=== PATIENT | female | born 1955 | race Caucasian/White ===

== ENCOUNTER 2017-02-12 13:23 | Outpatient (CLI) | payer BC ==
[2017-02-12 13:42] LABS: BASOPHILS # (AUTO) 0.1 10^3/uL (0.0-0.1); EOSINOPHILS # (AUTO) 0.1 10^3/uL (0.0-0.7); HCT - HEMATOCRIT 42.4 % (37.0-47.0); HGB - HEMOGLOBIN 14.4 g/dL (12.0-16.0); LYMPHOCYTES # (AUTO) 1.7 10^3/uL (1.5-3.5); LYMPHOCYTES % (AUTO) 26.1 %; MEAN CORPUSCULAR HEMOGLOBIN 32.2 pg (27.0-31.0); MEAN CORPUSCULAR HGB CONC 33.9 g/dL (32.0-36.0); MEAN CORPUSCULAR VOLUME 95.2 fL (81.0-99.0); MEAN PLATELET VOLUME 7.7 fL (7.9-10.8); MONOCYTES # (AUTO) 0.3 10^3/uL (0.0-1.0); MONOCYTES % (AUTO) 4.7 %; NEUTROPHILS # (AUTO) 4.3 10^3/uL (1.5-6.6); NEUTROPHILS % (AUTO) 66.2 %; NUCLEATED RED BLOOD CELLS AUTO 0.1 /100WBC; RED BLOOD COUNT 4.45 10^6/uL (4.20-5.40); RED CELL DISTRIBUTION WIDTH 13.1 % (12.0-15.0); UNCORRECTED WHITE BLOOD COUNT 6.5 x10^3/uL; WHITE BLOOD COUNT 6.5 x10^3/uL (4.8-10.8)
[2017-02-12 13:59] LABS: ALBUMIN/GLOBULIN RATIO 1.4 (1.0-2.2); BILIRUBIN,TOTAL 0.6 mg/dL (0.2-1.0); BUN - BLOOD UREA NITROGEN 15 mg/dL (6-20); CALCIUM 9.6 mg/dL (8.5-10.3); CARBON DIOXIDE - CO2 26 mmol/L (21-32); CHLORIDE 104 mmol/L (101-111); CHOL/HDL RATIO 3.2 (<4.4); CHOLESTEROL 255 mg/dL; CREATININE 0.4 mg/dL (0.4-1.0); GFR - MDRD 161 (>89); GLUCOSE 103 mg/dL (70-100); HDL CHOLESTEROL 80 mg/dL; POTASSIUM 3.8 mmol/L (3.5-5.0); SODIUM 140 mmol/L (135-145); TOTAL PROTEIN 7.8 g/dL (6.7-8.2); TRIGLYCERIDES 96 mg/dL; VLDL CHOLESTEROL 19 mg/dL
== END 2017-02-12 13:24 | disposition home or self-care (01) ==
LOC: LAB 13:23
PROVIDERS: ATTEND Physician Assistant Medical
DX: Z00.00 Encounter for general adult medical examination without abnormal findings (principal); Z11.59 Encounter for screening for other viral diseases
CPT/HCPCS: 36415; 80053; 80061; 84443; 85025; 86803

== ENCOUNTER 2017-04-11 08:41 | Day surgery (SDC) | payer BC ==
[2017-04-11] MEDS ORDERED: LACTATED RINGERS 1,000 ML IV ONE ×2 (09:02→10:25)
[2017-04-11] MEDS ORDERED: fentaNYL 100 MCG/2 ML VIAL IVP ONE (09:34)
[2017-04-11] MEDS ORDERED: MIDAZOLAM 2 MG/2 ML VIAL IVP ONE (09:34)
[2017-04-11 10:49] VITALS: BP 104/67
== END 2017-04-11 08:42 | disposition home or self-care (01) ==
LOC: SDS 08:41
PROVIDERS: ATTEND Surgery
PROC: 0DBN8ZX Excision of Sigmoid Colon, Via Natural or Artificial Opening Endoscopic, Diagnostic (ICD-10-PCS; 2017-04-11)
PROC: 0DBH8ZX Excision of Cecum, Via Natural or Artificial Opening Endoscopic, Diagnostic (ICD-10-PCS; principal; 2017-04-11 09:45)
DX: Z12.11 Encounter for screening for malignant neoplasm of colon (principal); K57.30 Diverticulosis of large intestine without perforation or abscess without bleeding; D12.0 Benign neoplasm of cecum; D12.5 Benign neoplasm of sigmoid colon; K64.8 Other hemorrhoids; F17.210 Nicotine dependence, cigarettes, uncomplicated
CPT/HCPCS: 45384; J7120

== ENCOUNTER 2018-07-27 14:33 | Outpatient (CLI) | payer MEDICARE, OTHER ==
--- NOTE | 2018-07-28 12:25 | Mammography Report ---
Reason: SCREENING MAMMO Procedure Date: 07/27/2018 Accession Number: [id number] / [id number] Procedure: ZAHRAA - Screening Mammo w/Gerardo CPT Code: FULL RESULT: EXAM: Screening Mammo w/Gerardo DATE: 07/27/2018 3:24 PM CLINICAL HISTORY: Routine screening. No reported personal or family history of breast cancer. TECHNIQUE: (B) - Bilateral CC and MLO views were obtained. COMPARISON: 09/12/2015 through 09/03/2009 PARENCHYMAL PATTERN: (A) - The breasts demonstrate scattered fibroglandular densities bilaterally. FINDINGS: Bilateral breasts: There is a stable oval, partially obscured/partially circumscribed 13 mm mass in the anterior upper outer right breast. There is an oval circumscribed isodense mass seen in the posterior inferior left breast MLO view only measuring 7 mm unchanged from comparison of 2016. There are no suspicious masses, calcifications, or areas of distortion. IMPRESSION: Benign findings. BI-RADS category 2. RECOMMENDATION: (ANNUAL) - Recommend routine annual screening mammography. BI-RADS CATEGORY: (2) - Benign Findings. STANDARD QUALIFYING STATEMENTS: 1. This examination was not reviewed with the aid of Computer-Aided Detection (CAD). 2. A negative or benign imaging report should not preclude biopsy if clinically suspicious findings are present. 3. Dense breasts may obscure an underlying neoplasm. 4. This examination was reviewed with the aid of 3D breast imaging (tomosynthesis).
== END 2018-07-27 14:34 | disposition home or self-care (01) ==
LOC: DI 14:33
PROVIDERS: ATTEND Family Medicine
DX: Z12.31 Encounter for screening mammogram for malignant neoplasm of breast (principal)
CPT/HCPCS: 77063; 77067

== ENCOUNTER 2022-01-16 07:53 | Outpatient (CLI) | payer MEDICARE, OTHER ==
--- NOTE | 2022-01-16 12:13 | Mammography Report ---
BILATERAL DIGITAL SCREENING MAMMOGRAM 3D/2D: 01/16/2022 CLINICAL: Routine screening. Comparison is made to exams dated: 07/27/2018 mammogram and 09/12/2015 mammogram - [facility]. There are scattered areas of fibroglandular density in both breasts (category b / 25%-50% glandular t issue). There is architectural distortion in the left breast at 2 o'clock middle depth. There also is architectural distortion in the left breast posterior depth superior region seen on the mediolateral oblique view only. No other significant masses, calcifications, or other findings are seen in either breast. IMPRESSION: INCOMPLETE: NEEDS ADDITIONAL IMAGING EVALUATION The architectural distortion in the left breast at 2 o'clock middle depth is indeterminate. Addition al views with possible ultrasound are recommended. The architectural distortion in the left breast posterior depth superior region seen on the mediolate ral oblique view only is indeterminate. Additional views with possible ultrasound are recommended. Based on the Tyrer Cuzick model (a risk assessment model) the patients lifetime risk is 4.8% and her 10 year risk is 2.6%. According to the ACR, ACS, and NCCN guidelines, an annual breast MRI exam shraddha g with mammogram is recommended if the patients lifetime risk is 20% or greater. This exam was interpreted at Station ID: [id number]. NOTE: For mammograms, a report in lay terms will be sent to the patient. Approximately 15% of breast malignancies will not be visualized mammographically. In the management of a palpable breast mass, a negative mammogram must not discourage biopsy of a clinically suspicious lesion. Electronically Signed By: Portia Baker M.D. lk/:01/16/2022 11:28:04 ACR BI-RADS Category 0: Incomplete 3340F PARENCHYMAL PATTERN: (A) - The breast(s) demonstrate(s) scattered fibroglandular densities. BI-RADS CATEGORY: (0) - 0 Mammo and [place] [id number] Immediate follow-up LATERALITY: (B)
== END 2022-01-16 07:54 | disposition home or self-care (01) ==
LOC: DI 07:53
PROVIDERS: ATTEND Internal Medicine
DX: Z12.31 Encounter for screening mammogram for malignant neoplasm of breast (principal)

== ENCOUNTER 2022-05-31 09:32 | Day surgery (SDC) | payer MEDICARE, OTHER ==
[2022-05-31] MEDS ORDERED: CEFAZOLIN 2G/50ML 0.9% NS 2 GM/50 ML BAG IV ONE (09:37)
[2022-05-31] MEDS ORDERED: LACTATED RINGERS 1,000 ML IV ONE (10:08)
[2022-05-31] MEDS ORDERED: PROPOFOL 200 MG/20 ML VIAL IVP ONE (11:22)
[2022-05-31] MEDS ORDERED: MIDAZOLAM 2 MG/2 ML VIAL ONE (11:23)
[2022-05-31] MEDS ORDERED: fentaNYL 100 MCG/2 ML VIAL ONE ×2 (11:23→13:22)
--- NOTE | 2022-05-31 11:35 | ANESTHESIA ---
Pre-Anesthesia VS, & Labs - Diagnosis left breast carcinoma, right breast lesion - Procedure marcy simple mastectomy with marcy sn biopsy Vital Signs: Temp Pulse Resp BP Pulse Ox O2 Flow Rate 36. C L 67 16 141/87 H 98 05/31/22 09:56 05/31/22 09:56 05/31/22 09:56 05/31/22 09:56 05/31/22 09:56 Height: 5 ft 4 in Weight (kg): 55 kg Body Mass Index: 20.8 BMI Classification: Normal - NPO >8 hours - Is Patient ?: No Home Medications and Allergies Allergies/Adverse Reactions: Allergies Allergy/AdvReac Type Severity Reaction Status Date / Time No Known Drug Allergies Allergy Verified 04/22/22 16:20 Anes History & Medical History - Anesthetic History Anesthesia Complications: reports: No previous complications - Medical History Cardiovascular: reports: None Pulmonary: reports: None Gastrointestinal: reports: Colon polyps Urinary: reports: Other Neuro: reports: None Musculoskeletal: reports: None Endocrine/Autoimmune: reports: None Skin: reports: None Smoking Status: Former smoker (quit 10 years ago) Psychosocial: reports: Cannabis (once per week) History of Cancer?: Yes (breast) - Surgical History General: reports: Colonoscopy Eyes Ears Nose Throat (EENT): reports: Cataracts Gynecologic: reports: Dilation and currettage Exam General: Alert, Oriented x3, Cooperative, No acute distress Dental: WNL Mouth Openin Fingerbreadth Neck Mobility: Normal Mallampati classification: II Thyromental Distance: 4-6 cm Mental/Cognitive Status: Alert/Oriented X3, Normal for patient Plan Anesthesia Type: General Consent for Procedure(s) Verified and Reviewed: Yes Code Status: Attempt Resuscitation ASA classification: 2-Mild systemic disease Is this case an emergency?: No
[2022-05-31] MEDS ORDERED: ATROPINE ABBOJECT 1 MG/10 ML SYRINGE IVP PRN (11:36)
[2022-05-31] MEDS ORDERED: HYDROmorphone 0.5 MG/0.5 ML SYRINGE IVP PRN (11:36)
[2022-05-31] MEDS ORDERED: MORPHINE 2 MG/ML CARPUJECT IVP PRN (11:36)
[2022-05-31] MEDS ORDERED: NALOXONE 0.4 MG/ML VIAL IVP PRN (11:36)
[2022-05-31] MEDS ORDERED: ONDANSETRON 4 MG/2 ML VIAL IVP PRN (11:36)
[2022-05-31] MEDS ORDERED: fentaNYL 100 MCG/2 ML VIAL IVP PRN (11:36)
[2022-05-31] MEDS ORDERED: METHYLENE BLUE 0.5% 50 MG/10 ML AMPULE ONE (11:43)
[2022-05-31] MEDS ORDERED: BUPIVACAINE 0.25% PF 30 ML VIAL ONE (11:43)
[2022-05-31] MEDS ORDERED: LACTATED RINGERS 1,000 ML IV SCH (12:00)
[2022-05-31] MEDS ORDERED: SUCCINYLCHOLINE 200 MG/10 ML VIAL ONE (12:49)
[2022-05-31] MEDS ORDERED: DEXAMETHASONE 10 MG/ML VIAL ONE (12:53)
[2022-05-31] MEDS ORDERED: METHYLENE BLUE 0.5% 50 MG/10 ML AMPULE IV ONE (13:02)
[2022-05-31] MEDS ORDERED: ePHEDrine 50 MG/ML VIAL IVP ONE (13:04)
[2022-05-31] MEDS ORDERED: BUPIVACAINE 0.25% PF 30 ML VIAL SUBQ ONE (13:20)
[2022-05-31] MEDS ORDERED: HYDROmorphone 1 MG/ML CARPUJECT ONE (13:52)
[2022-05-31] MEDS ORDERED: ACETAMINOPHEN 1,000 MG/100 ML 1,000 MG/100 ML BAG IV ONE (13:53)
[2022-05-31] MEDS ORDERED: LACTATED RINGERS 200 ML IV ONE (16:01)
--- NOTE | 2022-05-31 16:12 | OPERATIVE REPORT ---
Operative Report - General Planned Procedure: Bilateral simple mastectomy and left axillary sentinel lymph node biopsy Pre-Op Diagnosis: Left biopsy-proven lobular carcinoma of the breast with MRI showing suspici Procedure Performed: Bilateral simple mastectomy with left axillary sentinel lymph node biopsy Post Op Diagnosis: Same - Procedure Note Primary Surgeon: Gilbert Garza MD Anesthesia Provider: Timo Barakat CRNA Anesthesia Technique: General ET tube, Local (60 mL of quarter percent Marcaine (30 mL on each side)) IV Fluids (mL): 2,000 Estimated Blood Loss (mL): 50 Drain/Tube Type: Bj drain (2 19 Fr Bj drains on the left the posterior 1 in the axilla and the anterior one across the chest wall 1 19 Fr Bj drain across the chest wall on the right) Complications: None. - Other Other Information/Narrative: After verbal and written informed consent was obtained detailing the operation, the alternatives the operation including no operation, risks of infection, bleeding requiring transfusion with its risks, nerve injury, and and after I met with the patient confirming the surgery and the site of surgery (signing the site that would have the sentinel lymph node biopsy), the patient was brought to the operative suite and placed supine on the operating table. Great care was taken to avoid pressure points to prevent pressure necrosis or nerve injury. Monitoring devices were applied along with TEDs and pneumatic compression stockings (to prevent DVT). The patient received preoperative antibiotics for surgical prophylaxis. Timo Barakat CRNA sedated and anesthetized the patient for the entire procedure. A "time in" then confirmed that the patient was identified with 3 identifiers (name, date, and medical record number), the history and physical was updated and in the chart, the signed consent confirming the procedure was in the chart, the patient was in the correct position, the aforementioned prophylactic measures were in place or given, we had the correct personnel and equipment to complete the procedure and that anesthesia and the surgical team were given an opportunity to express any concerns. With the agreement of everyone in the room we proceeded with the operation After prepping the left breast in a sterile manner 3 mL aliquots of methylene blue (2 mL methylene blue and 10 mL of normal saline) were injected at the 12:00, 3:00, 6:00, and 9 o'clock position periareolarly. I then massaged the breast for 5 minutes to assist the dye getting into the lymphatics and subsequently into the lymph nodes. The patient was subsequently prepped and draped in the usual sterile manner. With the patient draped my initials were clearly visible. Both the right and the left breast were marked to try and mirror image the incision. I addressed in the left breast first. An elliptical incision was made encompassing the nipple areolar complex and this was taken down subcutaneously. An upper flap was developed using Bovie electrocautery and I traced this up into the axilla proper in order to find the sentinel lymph node. The sentinel lymph node was clearly identified with his blue coloration and it was attached on the lymph node that did not have blue coloration and both were removed using Bovie electrocautery. Hemostasis was also obtained using a 3-0 Vicryl suture ligature. This was sent off separately for pathologic evaluation. A lower flap was also developed in a similar fashion and dissection was carried out down to the pectoralis major muscle. The upper limit of the dissection was the clavicle, the medial limit of the dissection was the sternum, and the inferior aspect of the dissection was the breast crease. The dissection was then started at the sternum and the breast tissue was raised up off of the pectoralis major muscle without removing any muscle. There was no extension of the tumor into the muscle itself. This proceeded in a medial to lateral manner in order to remove the tail of Huntley. The specimen was sent off the operative field and permission was given to send it to pathology. The wound was examined and meticulous hemostasis was noted. 2 separate stab incisions were placed laterally and through these were placed 19 Egyptian Bj drains were then cut to fit. These were secured to the skin using a 3-0 nylon suture in a Samy sandal fashion. The anterior drain was placed across the left chest wall where the posterior drain was placed in the axilla. The subcutaneous tissues were approximated using interrupted simple 2-0 Vicryl sutures. The skin was then approximated using a running subcuticular 4-0 Monocryl. The subcutaneous tissues were injected using 30 mL of quarter percent Marcaine. Both drains were placed to grenade suction. This wound was then draped off from the right side and a new sterile tray of instruments were used for the right sided dissection. Both I and the scrub changed gown and glove's to ensure that there was no cross-contamination. Another timeout was done to ensure that everyone was on the same page. Instructions were given to give additional antibiotics at the appropriate time. With the 3-minute very run in the room we proceeded with a right-sided simple mastectomy. An elliptical incision was made encompassing the nipple areolar complex and this was taken down subcutaneously. An upper flap and lower flap was developed using Bovie electrocautery and dissection was carried out down to the pectoralis major muscle. The upper limit of the dissection was the clavicle, the medial limit of the dissection was the sternum, and the inferior aspect of the dissection was the breast crease. The dissection was then started at the sternum and the breast tissue was raised up off of the pectoralis major muscle without removing any muscle. There was no extension of the tumor into the muscle itself. This proceeded in a medial to lateral manner in order to remove the tail of Huntley. The specimen was sent off the operative field and permission was given to send it to pathology. The wound was examined and meticulous hemostasis was noted. A stab incision was placed laterally and through this was placed 19 Egyptian Bj drain that was placed across the right chest wall then cut to fit. This was secured to the skin using a 3-0 nylon suture in a Samy sandal fashion. The subcutaneous tissues were approximated using interrupted simple 2-0 Vicryl sutures. The skin was then approximated using a running subcuticular 4-0 Monocryl. The subcutaneous tissues were injected using 30 mL of quarter percent Marcaine. This drain was placed to grenade suction. The skin was cleaned of its prep and Dermabond was applied. At this point a timeout was performed that confirmed that all counts were correct x2, the procedure that was performed, the blood loss, the IV fluids administered, the patient's condition, and any concerns of the operating team had. Having tolerated the procedure well, the patient was taken recovery room in good and stable condition. The plan is for outpatient discharge after extended recovery when the patient is adequately recovered and the patient is well versed in drain care. CPT 12487 - modifier 50 (bilateral simple mastectomy) CPT 15580 (sentinel lymph node biopsy) CPT 13896 (intraoperative mapping of sentinel node) This document was created in part using voice recognition technology. Because of the inherent limitations of the system, occasional same sounding word substitutions and grammatical errors do occur and persist despite proofreading. Please read this document for content.
--- NOTE | 2022-05-31 19:26 | ANESTHESIA POST OP EVALUATION ---
Anesthesia Post Eval - Post Anesthesia Eval Vitals: Last Vital Signs Temp 35.6 C L 05/31/22 17:49 Pulse 67 05/31/22 19:15 Resp 14 05/31/22 17:49 BP 129/70 05/31/22 19:15 Pulse Ox 98 05/31/22 17:49 O2 Flow Rate CV Function Including HR & BP: Stable Pain Control: Satisfactory Nausea & Vomiting: Negative Mental Status: Baseline Respiratory Status: Airway Patent Hydration Status: Satisfactory Anesthesia Complications: None
[2022-06-01] MEDS: HYDROcod/ACETAM 5/325 MG TABLET PO PRN ×2 (01:10→05:58)
[2022-06-01 11:00] VITALS: BP 132/59
--- NOTE | 2022-06-01 11:41 | PROVIDER PROGRESS NOTE ---
Subjective - General Procedure Date: 05/31/22 Post Op Days: 1 Procedure Performed: Bilateral mastectomy with LEFT sentinel lymph node biopsy - Review of Systems Wound/Incisions: positive: Dressing dry and intact General: positive: No symptoms HEENT: positive: No symptoms Pulmonary: positive: No symptoms Cardiovascular: positive: No symptoms Gastrointestinal: positive: No symptoms Genitourinary: positive: No symptoms Musculoskeletal: positive: No symptoms Skin: positive: No symptoms Psychiatric: positive: No symptoms Objective - Patient Data Reviewed Vital Signs: Yes Vital Signs: Vital Signs x48h Temp Pulse Resp BP Pulse Ox 06/01/22 10:00 37.1 C 72 19 132/59 H 95 06/01/22 05:05 36.3 C L 65 17 147/61 H 96 Weight: Weight 05/30/22 05/31/22 06/01/22 23:59 23:59 23:59 Weight (kg) 55 kg Intake & Output: Intake and Output Totals x24h 05/30/22 05/31/22 06/01/22 23:59 23:59 23:59 Intake Total 250 Output Total 50 160 Balance 200 -160 - Current Medications Current Medications: Current Medications Generic Name Dose Route Start Last Admin Trade Name Freq PRN Reason Stop Dose Admin Hydrocodone Bitart/Acetaminophen 1 tab 05/31/22 16:05 06/01/22 05:58 Hydrocod/Acetam 5/325 Mg Tablet PO 1 tab Q4HR PRN Administration Moderate Pain (Level 4-6) - Physical Exam Wound/Incisions: positive: Healing well, Dressing dry and intact General Appearance: positive: No acute distress Eyes Bilateral: positive: No lid inflammation, Conjunctivae nml, No scleral icterus ENT: positive: No signs of dehydration Neck: positive: Trachea midline Respiratory: positive: Chest non-tender, No respiratory distress, Breath sounds nml Cardiovascular: positive: Regular rate & rhythm Abdomen: positive: Non-tender ABX Reporting Has patient been on IV antibiotics over the past 48 hours?: Yes Impression/Plan - Problem List Problem List: D1 s/p BILATERAL mastectomy and LEFT sentinel lymph node biopsy Okay to discharge home and have her return to office for drain removal when less than 60 mL per 24 hours. Shower daily making sure to get wounds wet. Call with surgical issues or concerns.
== END 2022-06-01 13:10 | disposition home or self-care (01) ==
LOC: SDS 09:32 → MS2 15:54 → SDS 06-01 13:10
PROVIDERS: ATTEND Surgery
PROC: 0HBV0ZZ Excision of Bilateral Breast, Open Approach (ICD-10-PCS; principal; 2022-05-31 11:00)
PROC: 07B60ZX Excision of Left Axillary Lymphatic, Open Approach, Diagnostic (ICD-10-PCS; 2022-05-31 11:00)
DX: C50.912 Malignant neoplasm of unspecified site of left female breast (principal); C77.3 Secondary and unspecified malignant neoplasm of axilla and upper limb lymph nodes; Z17.0 Estrogen receptor positive status [ER+]; Z87.891 Personal history of nicotine dependence; Z40.01 Encounter for prophylactic removal of breast
CPT/HCPCS: 19303; 38500; 38900; A9270; J0131; J0330; J0690; J1170; J7120

== ENCOUNTER 2022-09-06 12:33 | Observation (INO) | payer MEDICARE, OTHER ==
[2022-09-06] MEDS ORDERED: LACTATED RINGERS 1,000 ML IV ONE (12:34)
--- NOTE | 2022-09-06 13:08 | ANESTHESIA ---
Pre-Anesthesia VS, & Labs - Diagnosis breast ca - Procedure portacath placement Vital Signs: Temp Pulse Resp BP Pulse Ox O2 Flow Rate 36.3 C L 64 16 133/96 H 96 09/06/22 12:34 09/06/22 12:34 09/06/22 12:34 09/06/22 12:34 09/06/22 12:34 Height: 5 ft 4 in Weight (kg): 55 kg Body Mass Index: 20.8 BMI Classification: Normal - NPO >8 hours - Is Patient ?: No - Lab Results Lab results reviewed: Yes Home Medications and Allergies Allergies/Adverse Reactions: Allergies Allergy/AdvReac Type Severity Reaction Status Date / Time No Known Drug Allergies Allergy Verified 09/03/22 12:55 Anes History & Medical History - Anesthetic History Anesthesia Complications: reports: No previous complications Family history of Anesthesia Complications: Denies Family history of Malignant Hyperthermia: Denies - Medical History Cardiovascular: reports: None Pulmonary: reports: None Gastrointestinal: reports: Colon polyps Urinary: reports: None Neuro: reports: None Musculoskeletal: reports: None Endocrine/Autoimmune: reports: None Skin: reports: None Smoking Status: Former smoker (quit 10 years ago) - Surgical History General: reports: Colonoscopy Eyes Ears Nose Throat (EENT): reports: Cataracts Gynecologic: reports: Dilation and currettage Exam General: Alert, Oriented x3, Cooperative Dental: WNL Mouth Openin Fingerbreadth Neck Mobility: Normal Mallampati classification: II Thyromental Distance: 4-6 cm Respiratory: Lungs clear Cardiovascular: Regular rate Plan Anesthesia Type: MAC Consent for Procedure(s) Verified and Reviewed: Yes Code Status: Attempt Resuscitation ASA classification: 2-Mild systemic disease Is this case an emergency?: No
[2022-09-06] MEDS ORDERED: ePHEDrine 50 MG/ML VIAL IVP PRN (13:22)
[2022-09-06] MEDS ORDERED: HYDROmorphone 0.5 MG/0.5 ML SYRINGE IVP PRN (13:22)
[2022-09-06] MEDS ORDERED: fentaNYL 100 MCG/2 ML VIAL IVP PRN (13:22)
[2022-09-06] MEDS ORDERED: ATROPINE ABBOJECT 1 MG/10 ML SYRINGE IVP PRN (13:22)
[2022-09-06] MEDS ORDERED: NALOXONE 0.4 MG/ML VIAL IVP PRN (13:22)
[2022-09-06] MEDS ORDERED: ONDANSETRON 4 MG/2 ML VIAL IVP PRN ×2 (13:22→15:05)
[2022-09-06] MEDS ORDERED: PROPOFOL 500 MG/50 ML 500 MG/50 ML VIAL IV ONE (13:33)
[2022-09-06] MEDS ORDERED: fentaNYL 100 MCG/2 ML VIAL IVP ONE (13:33)
[2022-09-06] MEDS ORDERED: MIDAZOLAM 2 MG/2 ML VIAL IVP ONE (13:33)
[2022-09-06] MEDS ORDERED: ceFAZolin 2 GM in SODIUM CHLORIDE 0.9% MINIBAG 100 ML IV ONE (13:33)
[2022-09-06] MEDS ORDERED: LIDOCAINE 1%-EPI 1:100000 20 ML MDV ONE (13:46)
[2022-09-06] MEDS ORDERED: BUPIVACAINE 0.25% PF 30 ML VIAL ONE (13:46)
[2022-09-06] MEDS ORDERED: LACTATED RINGERS 1,000 ML IV SCH (14:00)
--- NOTE | 2022-09-06 14:01 | HISTORY & PHYSICAL EXAMINATION ---
Chief Complaint - Chief Complaint Chief Complaint: here for portacath placement History of Present Illness - History Obtained From Records Reviewed: yes History obtained from: pt Exam Limitations: none - History of Present Illness HPI Comment/Other: history left breast cancer and bilateral mastectomy. she will be receiving left chest radiation. History - Past Medical History Cardiovascular: reports: None Respiratory: reports: None Neuro: reports: None Endocrine/Autoimmune: reports: None GI: reports: Colon polyps : reports: None HEENT: reports: Chronic vision loss Psych: reports: None Musculoskeletal: reports: None Derm: reports: None MRSA Hx?: No - Past Surgical History General: reports: Colonoscopy /RAND BUTTER: reports: Dilation and currettage HEENT: reports: Cataracts Meds/Allgy - Allergies Allergies/Adverse Reactions: Allergies Allergy/AdvReac Type Severity Reaction Status Date / Time No Known Drug Allergies Allergy Verified 09/03/22 12:55 Review of Systems - Other Findings Other Findings: 10 pt ros as above otherwise unremarkable Exam - Vital Signs Vital Signs: Vital Signs x48h Temp Pulse Resp BP Pulse Ox 09/06/22 12:34 36.3 C L 64 16 133/96 H 96 - Physical Exam General Appearance: positive: No acute distress, Alert Eyes Bilateral: positive: PERRL, EOMI, No scleral icterus ENT: positive: No signs of dehydration Neck: positive: No JVD, Trachea midline Respiratory: positive: No respiratory distress Cardiovascular: positive: Regular rate & rhythm Abdomen: positive: No distention Neurologic/Psychiatric: positive: Oriented x3 Conclusion/Plan - Problem List (1) Breast cancer Conclusion/Plan: plan chemotherapy port placement parq held and consent obtained - Lab Results Lab results reviewed: Yes
[2022-09-06] MEDS ORDERED: SODIUM CHLORIDE 0.9% 100 ML BAG IV ONE (14:35)
[2022-09-06] MEDS ORDERED: BUPIVACAINE 0.25% PF 30 ML VIAL SUBQ ONE ×2 (14:36)
[2022-09-06] MEDS ORDERED: LIDOCAINE 1%-EPI 1:100000 20 ML MDV SUBQ ONE (14:53)
[2022-09-06] MEDS ORDERED: HYDROmorphone 1 MG/ML CARPUJECT ONE (15:07)
[2022-09-06] MEDS ORDERED: LACTATED RINGERS 200 ML IV ONE (15:10)
--- NOTE | 2022-09-06 15:12 | OPERATIVE REPORT ---
Operative Report - General Procedure Date: 09/06/22 Planned Procedure: right subclavian power port placement Pre-Op Diagnosis: left breast cancer Procedure Performed: right subclavian powerport placement fluorscopic guidance Post Op Diagnosis: same - Procedure Note Primary Surgeon: javier huang Anesthesia Technique: Local, MAC Pathology: none Estimated Blood Loss (mL): 2 Drain/Tube Type: Other (none) Indications: need for chemotherapy Findings: tip at junction svc right atrium. good flush and flow Complications: none - Other Other Information/Narrative: The patient was properly identified brought to the operating room and placed in supine position. Monitored anesthesia care was given as well as IV sedation. A towel roll was placed under the upper back. The patient was prepped and draped in a sterile fashion and given preoperative antibiotics. Local anesthetic was given. The right subclavian vein was easily accessed first pass with a needle. Guide wire placed and position confirmed. A subcutaneous pocket on the left upper chest was created measuring approximately 2-1/2 cm. Portacatheter tubing was then placed subcutaneous up to the venous access point. The portacatheter tubing was then easily placed with the use of a dilator peel-away sheath. The tubing was aspirated and flushed with saline. Under fluoroscopic guidance the tubing was pulled back to the junction of the atrium and the superior vena cava. The portacatheter aspirated and flushed easily assuring good position. The portacatheter was then cut to size and further assembled. The port was secured to subcutaneous tissue with 2 interrupted 3-0 Prolene sutures. The port again was aspirated and flushed now with heparin. Buried interrupted subdermal 3-0 Vicryl sutures were then placed. Skin was closed with buried interrupted and running 4-0 Monocryl subcuticular suture. Dressing was applied. The patient tolerated the procedure well was awakened and brought to recovery in good condition.
--- NOTE | 2022-09-06 15:36 | XRAY Report ---
PROCEDURE: Chest 1 View X-Ray INDICATIONS: shortness of breath and pain, new portacath TECHNIQUE: One view of the chest was acquired. COMPARISON: None. FINDINGS: Surgical changes and devices: Right portacatheter terminates in the proximal right atrium. Lungs and pleura: No dense consolidation or pleural effusion. Mediastinum: Mediastinal contours appear normal. Heart size is normal. Bones and chest wall: No suspicious bony lesions. Overlying soft tissues appear unremarkable. IMPRESSION: Right portacatheter terminates in the proximal right atrium. Reviewed by: Sammy Vargas MD on 09/06/2022 3:34 PM PDT Approved by: Sammy Vargas MD on 09/06/2022 3:34 PM PDT Station ID: [id number]
--- NOTE | 2022-09-06 15:40 | ANESTHESIA POST OP EVALUATION ---
Anesthesia Post Eval - Post Anesthesia Eval Vitals: Last Vital Signs Temp 36.4 C L 09/06/22 15:15 Pulse 60 09/06/22 15:15 Resp 16 09/06/22 15:15 BP 120/70 09/06/22 15:15 Pulse Ox 99 09/06/22 15:15 O2 Flow Rate CV Function Including HR & BP: Stable Pain Control: Satisfactory Nausea & Vomiting: Negative Mental Status: Baseline Respiratory Status: Airway Patent Hydration Status: Satisfactory Anesthesia Complications: None - Other Details/Therapies Other Details/Therapies: patient c/o pain and SOB post op. Vital signs WNL. 1 mg dilaudid given IV and CXR obtained post op. No apparent pneumothorax per radiologist. Patient reported improved pain after dilaudid. Surgeon admitting patient for extended observation.
--- NOTE | 2022-09-06 16:02 | PROVIDER PROGRESS NOTE ---
Subjective - Prog Note Date Prog Note Date: 09/06/22 - Subjective Pt reports feeling: Improved (chest pressure after port placement. feels fine now) Objective - Vital Signs/Intake & Output Vital Signs: Vital Signs x48h Temp Pulse Resp BP Pulse Ox 09/06/22 15:45 36.4 C L 60 18 136/95 H 99 09/06/22 15:30 36.4 C L 57 L 18 133/76 H 99 09/06/22 15:15 36.4 C L 60 16 120/70 99 09/06/22 15:07 36.4 C L 60 16 121/93 H 100 09/06/22 12:34 36.3 C L 64 16 133/96 H 96 Intake & Output: Intake & Output 09/03/22 09/04/22 09/05/22 09/06/22 23:59 23:59 23:59 23:59 Intake Total 100 Output Total 2 Balance 98 - Objective General Appearance: positive: No acute distress, Alert Eyes Bilateral: positive: PERRL, EOMI Neck: positive: No JVD, Trachea midline Respiratory: positive: No respiratory distress Neurologic/Psychiatric: positive: Oriented x3 - Diagnostic Imaging Diagnostic Imaging Results: positive: Read independently (possible small pneumothorax following port placement) Assessment/Plan - Problem List (1) Breast cancer Impression: chest pressure and possible small pneumothorax following port placement. feels fine now. lives alone plan admit observation and cxr this evening and tomorrow am. O2 therapy close observation
--- NOTE | 2022-09-06 16:47 | XRAY Report ---
PROCEDURE: OR Port-A-Cath INDICATIONS: port placement CONTRAST: None FLUORO TIME: 000.5 TECHNIQUE: Real time fluoroscopy was performed of the thorax. COMPARISON: None. FINDINGS: Single fluoroscopic image demonstrates what appears to be a right Port-A-Cath. Partially visualized c atheter is present with distal tip projecting over the mid/distal SVC. IMPRESSION: Single fluoroscopic image of Port-A-Cath replacement. Reviewed by: Zari Rodriguez MD on 09/06/2022 4:45 PM PDT Approved by: Zari Rodriguez MD on 09/06/2022 4:45 PM PDT Station ID: [id number]
[2022-09-06] MEDS: oxyCODONE 5 MG TABLET PO PRN ×2 (18:14→23:51)
[2022-09-06] MEDS: LORazepam 1 MG TABLET PO PRN (20:07)
[2022-09-06] MEDS ORDERED: ACETAMINOPHEN 325 MG TABLET PO PRN (22:04)
[2022-09-06] MEDS: KETOROLAC 15 MG/ML VIAL IVP PRN (22:26)
[2022-09-06] MEDS ORDERED: lidocaine 1% 20 ML MDV ONE (22:44)
[2022-09-06] MEDS ORDERED: fentaNYL 100 MCG/2 ML VIAL ONE (22:50)
[2022-09-06] MEDS ORDERED: PROPOFOL 200 MG/20 ML VIAL IVP ONE (22:50)
--- NOTE | 2022-09-06 23:27 | PROCEDURE REPORT ---
Hospitalist Procedure Note - Procedure Note Procedure Note: The patient was found to have a right-sided pneumothorax on follow-up imaging. I discussed chest tube placement with her. Anesthesia was consulted for sedation. A consent was obtained. The patient understands the risk benefits and alternatives to the procedure. MAC anesthesia was induced. The right chest was prepped and draped in a standard sterile fashion. An 8 [place] thoracentesis catheter was obtained. The chest wall was infiltrated with 1% local anesthetic with lidocaine. It was placed in the right lateral fourth intercostal space. This was done to avoid the previous port placement. There was a theodore of air upon placement. The catheter was advanced. It was connected to the Pleur-evac. It was placed on suction. The catheter was secured with a 3-0 silk suture. It was further reinforced with a Tegaderm and tape. Follow-up chest x-ray ordered. The patient tolerated the procedure well.
--- NOTE | 2022-09-07 00:06 | XRAY Report ---
PROCEDURE: Chest 1 View X-Ray INDICATIONS: possible pneumothorax after port placement TECHNIQUE: One view of the chest was acquired. COMPARISON: Earlier in the day on 09/06/2022 FINDINGS: Surgical changes and devices: There is a stable right-sided chest port. Lungs and pleura: There is a moderate right-sided pneumothorax seen, which is increased in size comp ared to the prior examination. This measures 5.2 cm at the pulmonary apex. Mediastinum: No mediastinal shift is seen. Mediastinal contours appear normal. Heart size is normal . Bones and chest wall: No suspicious bony lesions. Overlying soft tissues appear unremarkable. IMPRESSION: Worsening right-sided pneumothorax, now moderate in size. Note: Case discussed by telephone with nurse Milagros at 11:02 PM [place] time on 09/06/2022. She will discu ss the findings with the attending physician. Reviewed by: Antoine Madrid MD on 09/06/2022 11:05 PM YESIKA Approved by: Antoine Madrid MD on 09/06/2022 11:05 PM YESIKA Station ID: [id number]
--- NOTE | 2022-09-07 00:26 | XRAY Report ---
PROCEDURE: Chest for Line Placement INDICATIONS: CHEST TUBE PLACEMENT TECHNIQUE: One view of the chest was acquired. COMPARISON: Earlier in the day on 09/06/2022 FINDINGS: Surgical changes and devices: A right-sided pleural drain is seen. There is a stable right-sided chest port. Lungs and pleura: There is a trace residual right-sided pneumothorax. Mediastinum: Mediastinal contours appear normal. Heart size is normal. Bones and chest wall: No suspicious bony lesions. Overlying soft tissues appear unremarkable. IMPRESSION: Interval placement of a right-sided pleural drain, with a small residual right-sided pneumothorax. Reviewed by: Antoine Madrid MD on 09/06/2022 11:25 PM YESIKA Approved by: Antoine Madrid MD on 09/06/2022 11:25 PM YESIKA Station ID: [id number]
[2022-09-07] MEDS: KETOROLAC 15 MG/ML VIAL IVP PRN ×2 (01:56→08:29)
[2022-09-07] MEDS: oxyCODONE 5 MG TABLET PO PRN ×2 (06:08→10:31)
[2022-09-07] MEDS: LORazepam 1 MG TABLET PO PRN ×2 (06:09→19:39)
--- NOTE | 2022-09-07 07:59 | XRAY Report ---
PROCEDURE: Chest 1 View X-Ray INDICATIONS: possible pneumothorax after port placement TECHNIQUE: One view of the chest was acquired. COMPARISON: FINDINGS: Surgical changes and devices: There is a right subclavian Mediport in place. A right lateral lower p leural catheter is present. This appears to have been retracted slightly since the prior study. Lungs and pleura: Small right pneumothorax has increased in size since the prior study. There is no evidence of mediastinal shift. Left lung is aerated. No consolidations or pleural effusions. Mediastinum: Mediastinal contours appear normal. Heart size is normal. No mediastinal shift. Bones and chest wall: No suspicious bony lesions. Overlying soft tissues appear unremarkable. IMPRESSION: 1. Slight increase in size of right pneumothorax despite presence of chest tube. No evidence of tensi on. 2. The chest tube has retracted slightly from the pleural space. 3. Findings discussed with Dr. Romeo at 0757 hours. Reviewed by: Madie Turner MD on 09/07/2022 7:58 AM PDT Approved by: Madie Turner MD on 09/07/2022 7:58 AM PDT Station ID: [id number]
--- NOTE | 2022-09-07 10:18 | PROVIDER PROGRESS NOTE ---
Subjective - Prog Note Date Prog Note Date: 09/07/22 Prog Note Time: 10:16 - Subjective Pt reports feeling: No change Subjective: The patient states that after getting up to go to the bathroom early this morning she had increased pain. Objective - Vital Signs/Intake & Output Reviewed Vital Signs: Yes Vital Signs: Vital Signs x48h Temp Pulse Resp BP Pulse Ox O2 Flow Rate 09/07/22 07:28 97.9 F 61 16 117/67 98 4 09/07/22 05:00 97.5 F L 55 L 16 110/61 95 4 Intake & Output: Intake & Output 09/04/22 09/05/22 09/06/22 09/07/22 23:59 23:59 23:59 23:59 Intake Total 300 170 Output Total 2 525 Balance 298 -355 - Objective General Appearance: positive: No acute distress, Alert Neck: positive: Nml inspection Respiratory: positive: Other (Chest tube and dressing in place, subcu emphysema around the tube.) Cardiovascular: positive: Regular rate & rhythm Abdomen: positive: Non-tender Skin: positive: Color nml Extremities: positive: Nml appearance Neurologic/Psychiatric: positive: Oriented x3 Assessment/Plan - Problem List (1) Pneumothorax Impression: Plan for replacement with pigtail catheter chest tube with MAC anesthesia to relieve pneumo.
[2022-09-07] MEDS ORDERED: lidocaine 1% 20 ML MDV SUBQ ONE (11:07)
[2022-09-07] MEDS ORDERED: PROPOFOL 200 MG/20 ML VIAL IVP ONE (12:44)
[2022-09-07] MEDS ORDERED: fentaNYL 100 MCG/2 ML VIAL ONE (12:44)
--- NOTE | 2022-09-07 13:20 | ANESTHESIA ---
Pre-Anesthesia VS, & Labs - Diagnosis pneumothorax - Procedure chest tube placement Vital Signs: Temp Pulse Resp BP Pulse Ox O2 Flow Rate 36.6 C 61 16 117/67 98 4 09/07/22 07:28 09/07/22 07:28 09/07/22 07:28 09/07/22 07:28 09/07/22 07:28 09/07/22 07:28 Height: 5 ft 4 in Weight (kg): 54 kg Body Mass Index: 20.4 BMI Classification: Normal - NPO Last Food Intake: 0800-oatmeal - Is Patient ?: No Home Medications and Allergies Active Medications Acetaminophen (Acetaminophen 325 Mg Tablet) 650 mg PO Q4HR PRN PRN Reason: Pain or Fever > 38C (100.4F) Last Admin: 09/06/22 23:50 Dose: 650 mg Ketorolac Tromethamine (Ketorolac 15 Mg/Ml Vial) 15 mg IVP Q6HR PRN PRN Reason: Severe Pain (Level 7-10) Stop: 09/11/22 22:03 Last Admin: 09/07/22 08:29 Dose: 15 mg Lorazepam (Lorazepam 1 Mg Tablet) 1 mg PO Q6H PRN PRN Reason: Anxiety Last Admin: 09/07/22 06:09 Dose: 1 mg Ondansetron HCl (Ondansetron 4 Mg/2 Ml Vial) 4 mg IVP Q6HR PRN PRN Reason: Nausea / Vomiting Oxycodone HCl (Oxycodone 5 Mg Tablet) 5 mg PO Q4HR PRN PRN Reason: Moderate Pain (Level 4-6) Last Admin: 09/07/22 10:31 Dose: 5 mg Allergies/Adverse Reactions: Allergies Allergy/AdvReac Type Severity Reaction Status Date / Time No Known Drug Allergies Allergy Verified 09/03/22 12:55 Anes History & Medical History - Anesthetic History Anesthesia Complications: reports: No previous complications - Medical History Cardiovascular: reports: None Pulmonary: reports: Other (pneumothorax) Gastrointestinal: reports: Colon polyps Urinary: reports: None Neuro: reports: None Musculoskeletal: reports: None Endocrine/Autoimmune: reports: None Skin: reports: None Smoking Status: Former smoker (quit 10 years ago) Psychosocial: reports: Cannabis History of Cancer?: Yes (breast) - Surgical History General: reports: Colonoscopy Eyes Ears Nose Throat (EENT): reports: Cataracts Gynecologic: reports: Dilation and currettage, Mastectomy (bilateral) Exam General: Alert, Oriented x3, Cooperative, No acute distress Dental: WNL Mouth Openin Fingerbreadth Neck Mobility: Normal Mallampati classification: I Thyromental Distance: 4-6 cm Mental/Cognitive Status: Alert/Oriented X3, Normal for patient Plan Anesthesia Type: MAC Consent for Procedure(s) Verified and Reviewed: Yes Code Status: Attempt Resuscitation ASA classification: 2-Mild systemic disease Is this case an emergency?: No
--- NOTE | 2022-09-07 13:46 | XRAY Report ---
PROCEDURE: Chest for Line Placement INDICATIONS: line placement - chest tube TECHNIQUE: One view of the chest was acquired. COMPARISON: None. FINDINGS: Surgical changes and devices: A chest tube appears well-positioned. The tip is in the apex of the ri ght lung. Right chest wall port is also well-positioned. Lungs and pleura: A right pneumothorax previously seen is significantly smaller with only a small re sidual pneumothorax measuring 1 cm in thickness. Mediastinum: Mediastinal contours appear normal. Heart size is normal. Bones and chest wall: No suspicious bony lesions. Overlying soft tissues appear unremarkable. IMPRESSION: No acute cardiopulmonary process. Status post advancement of a chest tube with good positioning and significantly improved pneumothorax . Reviewed by: Bandar Flores on 09/07/2022 12:45 PM YESIKA Approved by: Bandar Flores on 09/07/2022 12:45 PM YESIKA Station ID: [id number]
[2022-09-07] MEDS: HYDROmorphone 0.5 MG/0.5 ML SYRINGE IVP PRN ×3 (14:03→22:03)
[2022-09-08] MEDS: HYDROmorphone 0.5 MG/0.5 ML SYRINGE IVP PRN (04:54)
--- NOTE | 2022-09-08 07:48 | XRAY Report ---
PROCEDURE: Chest 1 View X-Ray INDICATIONS: chest tube TECHNIQUE: One view of the chest was acquired. COMPARISON: 09/07/2022 FINDINGS: Surgical changes and devices: Right sided portacatheter is present, as before. Catheter projects ove r the right upper lung. Lungs and pleura: No pleural effusions. Trace right apical pneumothorax. Lungs are clear. Mediastinum: Mediastinal contours appear normal. Heart size is normal. Bones and chest wall: No suspicious bony lesions. Overlying soft tissues appear unremarkable. IMPRESSION: Trace right apical pneumothorax. Reviewed by: Gladys Wilson MD on 09/08/2022 7:47 AM PDT Approved by: Gladys Wilson MD on 09/08/2022 7:47 AM PDT Station ID: [id number]
--- NOTE | 2022-09-08 07:54 | PHARMACY PROGRESS NOTE ---
- Best Possible Medication History Admit Date and Time: 09/07/22 9171 Processed by: Pharmacy As the person ultimately responsible for medication therapy, providers are able to order a medication from an existing home medication list in [facility] via the "Reconcile Routine" prior to Confirmation of that medication by shipping support. Such practice is discouraged except when the physician, in their clinical judgment, deems that a medical need exists for a medication without regard to previous use.
[2022-09-08] MEDS: oxyCODONE 5 MG TABLET PO PRN ×2 (09:23→16:28)
--- NOTE | 2022-09-08 13:05 | PROCEDURE REPORT ---
Hospitalist Procedure Note - Procedure Note Procedure Note: Date: 09/07/22 Procedure: Replacement of chest tube on the right side Surgeon:Zoltan Rizo: SHYLA Indications: The patient is a 67-year-old female with a pneumothorax status post port placement. She had a right-sided chest tube placed yesterday which got pulled back and her pneumothorax reaccumulated. I have discussed the risks benefits and alternatives to replacing the chest tube with the patient and she consents. Procedure: The patient's right chest wall was prepped and draped in a standard sterile fashion. A timeout was performed. MAC anesthesia was induced. Local anesthetic was injected into the area. The suture on the previous chest tube was removed and the chest tube was pulled out. The 11 blade was used to make a small jasper at the same site. The new 10 [place] chest tube with the cannula was placed through the same hole as the previous chest tube and was angled up over the rib. Once it was placed it was connected to the Pleur-evac. It was confirmed that the chest tube was in the chest cavity. It was sutured in place in 3 positions. It was then secured with a sterile dressing and tape. The patient tolerated the procedure well
--- NOTE | 2022-09-08 13:07 | PROVIDER PROGRESS NOTE ---
Subjective - General Admit Date: 09/07/22 Procedure Date: 09/06/22 Post Op Days: 2 Procedure Performed: replacement of chest tube - Review of Systems General: positive: No symptoms Pulmonary: positive: Pleuritic chest pain Cardiovascular: positive: No symptoms Gastrointestinal: positive: No symptoms Musculoskeletal: positive: Shoulder pain Skin: positive: No symptoms Objective - Patient Data Vital Signs: Vital Signs x48h Temp Pulse Resp BP Pulse Ox 09/08/22 11:35 97.9 F 74 16 123/66 95 09/08/22 07:43 97.7 F 72 16 118/61 96 Weight: Weight 09/06/22 09/07/22 09/08/22 23:59 23:59 23:59 Weight (kg) 54 kg 54 kg Intake & Output: Intake and Output Totals x24h 09/06/22 09/07/22 09/08/22 23:59 23:59 23:59 Intake Total 300 520 75 Output Total 2 800 150 Balance 298 -280 -75 - Imaging Results Radiology Imaging: positive: Final report received, EMP read indepedently - Current Medications Current Medications: Current Medications Generic Name Dose Route Start Last Admin Trade Name Freq PRN Reason Stop Dose Admin Acetaminophen 650 mg 09/06/22 22:04 09/06/22 23:50 Acetaminophen 325 Mg Tablet PO 650 mg Q4HR PRN Administration Pain or Fever > 38C (100.4F) Hydromorphone HCl 0.5 mg 09/07/22 13:47 09/08/22 04:54 Hydromorphone 0.5 Mg/0.5 Ml Syringe IVP 0.5 mg Q2H PRN Administration Severe Pain (Level 7-10) Ketorolac Tromethamine 15 mg 09/06/22 22:04 09/07/22 08:29 Ketorolac 15 Mg/Ml Vial IVP 09/11/22 22:03 15 mg Q6HR PRN Administration Severe Pain (Level 7-10) Lorazepam 1 mg 09/06/22 19:49 09/07/22 19:39 Lorazepam 1 Mg Tablet PO 1 mg Q6H PRN Administration Anxiety Oxycodone HCl 5 mg 09/06/22 15:05 09/08/22 09:23 Oxycodone 5 Mg Tablet PO 5 mg Q4HR PRN Administration Moderate Pain (Level 4-6) - Physical Exam Wound/Incisions: positive: Healing well, Dressing dry and intact, No drainage General Appearance: positive: No acute distress, Alert Respiratory: positive: No respiratory distress, Other (chest wall TTP at port and chest tube site) Cardiovascular: positive: Regular rate & rhythm Abdomen: positive: Non-tender Neurologic/Psychiatric: positive: Oriented x3 ABX Reporting Has patient been on IV antibiotics over the past 48 hours?: No Impression/Plan - Problem List Problem List: Status post chest tube placement with improved pneumothorax. No air leak on exam today. We will place the chest tube to waterseal and check another chest x-ray at 6 hours. Plan for removal of chest tube when pneumothorax resolved.
--- NOTE | 2022-09-08 16:15 | XRAY Report ---
PROCEDURE: Chest 1 View X-Ray INDICATIONS: chest tube to water seal TECHNIQUE: One view of the chest was acquired. COMPARISON: None. FINDINGS: Surgical changes and devices: Right-sided Port-A-Cath and right chest tube both are unchanged in pos ition. Lungs and pleura: Pneumothorax has resolved. No pleural effusion. Mediastinum: Mediastinal contours appear normal. Heart size is normal. Bones and chest wall: No suspicious bony lesions. Overlying soft tissues appear unremarkable. IMPRESSION: No residual pneumothorax identified. Reviewed by: Bandar Flores on 09/08/2022 3:14 PM YESIKA Approved by: Bandar Flores on 09/08/2022 3:14 PM YESIKA Station ID: [id number]
[2022-09-08] MEDS: LORazepam 1 MG TABLET PO PRN (22:43)
--- NOTE | 2022-09-09 11:01 | XRAY Report ---
PROCEDURE: Chest 1 View X-Ray INDICATIONS: pneumothoarx with chest tube TECHNIQUE: One view of the chest was acquired. COMPARISON: Radiograph 09/08/2022. FINDINGS: Surgical changes and devices: Right chest wall port tip projects over the cavoatrial junction. Right -sided chest tube in place. Lungs and pleura: No pleural effusions or pneumothorax. Lungs are clear. Mediastinum: Mediastinal contours appear normal. Heart size is normal. Bones and chest wall: No suspicious bony lesions. Overlying soft tissues appear unremarkable. IMPRESSION: No pneumothorax, with right-sided chest tube in place. Reviewed by: Uri Trinh on 09/09/2022 11:00 AM PDT Approved by: Uri Trinh on 09/09/2022 11:00 AM PDT Station ID: [id number]
--- NOTE | 2022-09-09 11:15 | PROVIDER PROGRESS NOTE ---
Subjective - General Admit Date: 09/07/22 Procedure Date: 09/06/22 Post Op Days: 3 - Review of Systems Wound/Incisions: positive: Healing well, Dressing dry and intact, No drainage General: positive: No symptoms Pulmonary: positive: Pleuritic chest pain Cardiovascular: positive: No symptoms Gastrointestinal: positive: No symptoms Musculoskeletal: positive: Shoulder pain Skin: positive: No symptoms Objective - Patient Data Vital Signs: Vital Signs x48h Temp Pulse Resp BP Pulse Ox 09/09/22 08:08 97.9 F 70 12 114/66 94 09/09/22 05:26 97.5 F L 65 12 117/72 95 Weight: Weight 09/07/22 09/08/22 09/09/22 23:59 23:59 23:59 Weight (kg) 54 kg Intake & Output: Intake and Output Totals x24h 09/07/22 09/08/22 09/09/22 23:59 23:59 23:59 Intake Total 520 285 Output Total 800 150 Balance -280 135 - Current Medications Current Medications: Current Medications Generic Name Dose Route Start Last Admin Trade Name Freq PRN Reason Stop Dose Admin Acetaminophen 650 mg 09/06/22 22:04 09/06/22 23:50 Acetaminophen 325 Mg Tablet PO 650 mg Q4HR PRN Administration Pain or Fever > 38C (100.4F) Hydromorphone HCl 0.5 mg 09/07/22 13:47 09/08/22 04:54 Hydromorphone 0.5 Mg/0.5 Ml Syringe IVP 0.5 mg Q2H PRN Administration Severe Pain (Level 7-10) Ketorolac Tromethamine 15 mg 09/06/22 22:04 09/07/22 08:29 Ketorolac 15 Mg/Ml Vial IVP 09/11/22 22:03 15 mg Q6HR PRN Administration Severe Pain (Level 7-10) Lorazepam 1 mg 09/06/22 19:49 09/08/22 22:43 Lorazepam 1 Mg Tablet PO 1 mg Q6H PRN Administration Anxiety Oxycodone HCl 5 mg 09/06/22 15:05 09/08/22 16:28 Oxycodone 5 Mg Tablet PO 5 mg Q4HR PRN Administration Moderate Pain (Level 4-6) Impression/Plan - Problem List Problem List: Chest tube out today. Check CXR in 6 hours - DC home if no pneumothorax
--- NOTE | 2022-09-09 17:53 | XRAY Report ---
PROCEDURE: Chest 1 View X-Ray INDICATIONS: chest tube removal TECHNIQUE: One view of the chest was acquired. COMPARISON: 09/09/2022 at 0618 hours FINDINGS: Surgical changes and devices: Right chest wall mihai catheter. Right chest tube has been removed. Lungs and pleura: No pleural effusions or pneumothorax. Lungs are clear. Mediastinum: Mediastinal contours appear normal. Heart size is normal. Bones and chest wall: No suspicious bony lesions. Overlying soft tissues appear unremarkable. IMPRESSION: No acute process. Reviewed by: Gladys Wilson MD on 09/09/2022 5:52 PM PDT Approved by: Gladys Wilson MD on 09/09/2022 5:52 PM PDT Station ID: [id number]
[2022-09-09 18:39] VITALS: BP 138/83
--- NOTE | 2022-09-09 18:40 | Discharge Plan ---
Discharge Plan Problem Reviewed?: Yes Disposition: Home, Self Care Condition: Good Prescriptions: Oxycodone HCl/Acetaminophen [Percocet 5-325 mg Tablet] 1 tab PO Q6HR PRN #20 tablet PRN Reason: Pain 5-7 Diet: Regular Activity Restrictions: No Restrictions Instruction Topics: Vascular Access Implantation, Pneumothorax No Smoking: If you smoke, Please STOP! Call for help. Follow-up with: Ruba Rivera MD [Primary Care Provider] - Ruben Gamez MD [Provider Admit Priv/Credential] -
--- NOTE | 2022-09-09 18:42 | DISCHARGE SUMMARY ---
"Discharge Summary Admit Date: 09/05/22 Discharge Date: 09/09/22 Discharging Provider: bassem Condition at Discharge: Good Discharge Disposition: 01 Home, Self Care - DIAGNOSES Admission Diagnoses: pneumothorax Discharge Diagnoses with Status of Each Condition: stable - HPI History of Present Illness: p admitted for port. She developed a pneumothorax. She was treated with chest tube placement x 2. Her pneumothorax has resolved. - CONSULTS | PROCEDURES Procedures: chest tube placement - ALLERGIES Allergies/Adverse Reactions: Allergies Allergy/AdvReac Type Severity Reaction Status Date / Time No Known Drug Allergies Allergy Verified 09/03/22 12:55 - MEDICATIONS Home Medications: Ambulatory Orders Medication Instructions Recorded Confirmed Oxycodone HCl/Acetaminophen 1 tab PO Q6HR PRN #20 tablet 09/06/22 [Percocet 5-325 mg Tablet] - PHYSICAL EXAM AT DISCHARGE General Appearance: positive: No acute distress, Alert Respiratory: positive: Chest non-tender, No respiratory distress, Breath sounds nml Cardiovascular: positive: Regular rate & rhythm Back: positive: Other (lipoma) - DIAGNOSTIC IMAGING Diagnostic Imaging Results: Final report reviewed"
== END 2022-09-09 18:45 | disposition home or self-care (01) ==
LOC: SDS 12:33 → MS2 15:40 → SDS 15:53 → MS2 15:54 → UNDOFXSDCACCOM 15:55 → UNDOFXSDCSVC 15:55 → UNDOFXSDCRRACCOM 15:55 → SDS 09-07 13:42 → MS2 09-07 13:42 → UNDOADMOB 09-07 13:45 → MS2 09-07 13:45 → UNDOADMOB 09-07 15:54 → MS2 09-07 15:54 → UNDODISOB 09-09 18:45
PROVIDERS: ADMIT Surgery; ATTEND Specialist
DX: C50.912 Malignant neoplasm of unspecified site of left female breast (principal); J95.811 Postprocedural pneumothorax; Y83.8 Other surgical procedures as the cause of abnormal reaction of the patient, or of later complication, without mention of misadventure at the time of the procedure; Z90.13 Acquired absence of bilateral breasts and nipples
CPT/HCPCS: 32551; 36561; 71045; 96374; 96375; 96376; A9270; C1788; G0378; J1170; J7120; J8499

== ENCOUNTER 2022-09-16 09:27 | Outpatient (CLI) | payer MEDICARE, OTHER ==
--- NOTE | 2022-09-16 15:46 | XRAY Report ---
PROCEDURE: Chest 2 View X-Ray INDICATIONS: RT SHOULDER PX AFTER PORT PLACEMENT TECHNIQUE: 2 views of the chest were acquired. COMPARISON: None. FINDINGS: Surgical changes and devices: Right-sided Port-A-Cath in good position Lungs and pleura: No pleural effusions or pneumothorax. Lungs are clear. Mediastinum: Mediastinal contours appear normal. Heart size is normal. Bones and chest wall: No suspicious bony lesions. Overlying soft tissues appear unremarkable. IMPRESSION: No acute cardiopulmonary process. Reviewed by: Jimbo Allen MD on 09/16/2022 2:45 PM AKDT Approved by: Jimbo Allen MD on 09/16/2022 2:45 PM AKDT Station ID: [id number]
== END 2022-09-16 09:28 | disposition home or self-care (01) ==
LOC: DI 09:27
PROVIDERS: ATTEND Physician Assistant
DX: M25.511 Pain in right shoulder (principal)

== ENCOUNTER 2023-01-13 10:58 | Outpatient (CLI) | payer MEDICARE, OTHER ==
--- NOTE | 2023-01-13 11:35 | XRAY Report ---
PROCEDURE: Ankle 3 View RT INDICATIONS: PAIN IN RIGHT ANKLE TECHNIQUE: 3 views of the ankle were acquired. COMPARISON: None. FINDINGS: Bones: No fractures or dislocations. Ankle mortise is normally aligned. No suspicious bony lesions . Soft tissues: No tibiotalar joint effusion. Achilles tendon appears normal. Mild swelling of the a nkle. IMPRESSION: No acute bony abnormality. If pain persists with conservative management, consider repeat x-ray in 1 0-14 days or cross-sectional imaging. Reviewed by: Jesús Parra MD on 01/13/2023 11:33 AM PDT Approved by: Jesús Parra MD on 01/13/2023 11:33 AM PDT Station ID: [id number]
[2023-01-13 11:39] LABS: CHOL/HDL RATIO 4.8 (<4.4); CHOLESTEROL 261 mg/dL; HDL CHOLESTEROL 54 mg/dL; LDL CHOLESTEROL,CALCULATED 188 mg/dL; LDL/HDL RATIO 3.5 (<4.4); TRIGLYCERIDES 95 mg/dL (48-352); VLDL CHOLESTEROL 19 mg/dL
[2023-01-13 11:54] LABS: THYROID STIMULATING HORMONE 2.14 uIU/mL (0.34-5.60)
[2023-01-14 06:10] LABS: HCV AB Non Reactive (Non Reactive)
== END 2023-01-13 10:59 | disposition home or self-care (01) ==
LOC: DI 10:58
PROVIDERS: ATTEND Internal Medicine
DX: Z00.00 Encounter for general adult medical examination without abnormal findings (principal); M25.571 Pain in right ankle and joints of right foot; D22.9 Melanocytic nevi, unspecified; C50.919 Malignant neoplasm of unspecified site of unspecified female breast; Z13.6 Encounter for screening for cardiovascular disorders; Z11.59 Encounter for screening for other viral diseases; Z79.899 Other long term (current) drug therapy; Z86.010 Personal history of colon polyps
CPT/HCPCS: 36415; 80061; 83721; 84443; 86803